=== PATIENT | female | born 2000 | race Caucasian/White ===

== ENCOUNTER 2020-06-23 08:31 | Emergency (ER) | payer BC ==
[~2020-06-23] VITALS: Ht 162.6 cm; Wt 54.5 kg
[2020-06-23 08:49] VITALS: TEMP 96.9
[2020-06-23 09:07] LABS: BASO % 0.2 % (0.0-2.0); GRAN # 11.4 (1.4-6.5); HEMATOCRIT 39.8 % (37.0-47.0); HEMOGLOBIN 13.9 g/dl (12.5-16.0); LYMPH # 0.8 (1.2-3.4); LYMPH % 6.5 % (20.0-51.0); MEAN CELL VOLUME 99 fl (80.0-100.0); MEAN CORPUSCULAR HEMOGLOBIN 35 pg (27.0-31.0); MEAN CORPUSCULAR HGB CONC 35 g/dl (33.0-37.0); MEAN PLATELET VOLUME 10.3 fl (7.4-10.4); MONO # 0.5 (0.1-0.6); MONO % 3.8 % (1.7-9.3); PLATELET COUNT 253 K/mm3 (130-400); RED BLOOD COUNT 4.02 M/mm3 (4.10-5.30); REDCELL DISTRIBUTION WIDTH-CV 12.7 % (11.5-14.5)
[2020-06-23 09:17] LABS: ALBUMIN 4.9 gm/dL (3.5-5.0); BILIRUBIN,TOTAL 0.8 mg/dL (0.0-1.0); CALCIUM 9.9 mg/dL (8.4-10.2); CREATININE, serum 0.83 (0.52-1.25); POTASSIUM 4.3 mmol/L (3.4-5.0); TOTAL PROTEIN 7.8 gm/dL (6.4-8.2)
[2020-06-23] MEDS ORDERED: REGLAN 5MG T5 MG/TAB PO (09:31)
[2020-06-23 09:53] VITALS: BP 130/84; PULSE 96
== END 2020-06-23 09:56 | disposition home or self-care (01) ==
LOC: COL.ER 08:31
PROVIDERS: Emergency Medicine
DX: F10.129 Alcohol abuse with intoxication, unspecified (principal)
CPT/HCPCS: J1200; J2765; J7030